=== PATIENT | female | born 1970 | race Caucasian/White ===

== ENCOUNTER 2016-12-09 02:14 | Emergency (ER) | payer BC ==
--- NOTE | 2016-12-09 02:41 | ED Physician Chart ---
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 Denies any numbness or tingling. Historian:: Patient Review:: Nurse's Note Reviewed Review of Systems - Review of Systems Other: Complete system review otherwise unremarkable except as noted in HPI. Past Medical History - Past Medical History Past Medical History: HTN, Other (rotator cuff injury) Family History: None Social History: Non Smoker, No Alcohol, No Drug Use, Employed Surgical History: Hysterectomy, other (rotator cuff repair) Psychiatricy History: None Medication: Reviewed Family Medical History - Family Member Mother History Unknown: Yes Ethnicity: Non- Physical Exam - Physical Examination Other:: INITIAL VITAL SIGNS: Reviewed by me GENERAL: Alert and interactive. No acute distress HEAD: Head is normocephalic and atraumatic EYES: EOMI. . No scleral icterus. No conjunctival injection ENT: Moist mucous membranes. NECK: Supple. No masses. Full range of motion RESPIRATORY: No tachypnea. Clear breath sounds bilaterally. No wheezing, rales, or rhonchi CV: Regular rate and rhythm. No murmurs, rubs, or gallops ABDOMEN: Soft, non-distended, non-tender. No guarding. No rebound. No masses. EXTREMITIES: Right shoulder has limited range of motion especially above 90 due to pain. Right upper distal extremity has good neurovascular status. SKIN: Warm and dry. No obvious rashes. NEUROLOGIC: Alert and oriented. Face is symmetric. Speech is normal. Moves all extremities equally. Motor and sensory distally intact. ED Septic Shock - . Is Septic Shock (SBP<90, OR Lactate>4 mmol\L) present?: No Reassessment (Disposition) - Reassessment Reassessment:: Patient has previous injury to the right shoulder. This is exacerbated recently she working several 18 hour shifts in a row. She's used tramadol and [place] in the past. She received Intramuscular Toradol here in the ER. Symptoms improved. Provided a short prescription for tramadol and [place]. Recommended follow-up with PCP for further prescriptions. 1-2 days. Gave return to ER precautions. Patient understands and agrees the plan. Reassessment Condition:: Improved - Diagnosis Diagnosis:: Acute on chronic right shoulder pain Hypertension - Aftercare/Follow up Instructions Aftercare/Follow-Up Instructions:: Counseled pt regarding lab results/diagnosis & need follow up, Refer to Discharge Instructions Medication Prescribed:: Tramadol [place] - Patient Disposition Discharge/Transfer:: Home Time:: 02:56 Condition at Disposition:: Improved ED Discharge Plan - Patient Disposition Admit/Discharge/Transfer: PT DISCHARGED HOME Condition at Disposition: Improved Instructions: Shoulder Pain
== END 2016-12-09 03:00 | disposition home or self-care (01) ==
LOC: ER 02:14
DX: G89.29 Other chronic pain (principal); M25.511 Pain in right shoulder; I10 Essential (primary) hypertension
CPT/HCPCS: 99283; 96372; J1885; Z7502